=== PATIENT | female | born 1995 | race Caucasian/White ===

== ENCOUNTER 2022-11-27 14:15 | Emergency (ER) | payer MEDICAID, SELFPAY ==
--- NOTE | 2022-11-27 14:17 | ED.FEMALEGU ---
HPI - Female Genitourinary General Chief complaint: Urogenital-Female Stated complaint: Poss UTI Time Seen by Provider: 11/27/22 14:17 Source: patient Mode of arrival: ambulatory Limitations: no limitations History of Present Illness HPI Narrative: Bonnie is a 27-year-old female patient presenting to clinic today with complaints of vaginal odor and slight white discharge. She reports she has had vaginal odor for 2 weeks and some discharge today. Last sexual intercourse was on . Last menstrual period was earlier this month. Patient is pretty sure that she is in a monogamous relationship with her partner. Related Data Allergies Allergy/AdvReac Type Severity Reaction Status Date / Time No Known Allergies Allergy Verified 11/27/22 14:27 Review of Systems Review of Systems: Pertinent positives per HPI. Patient denies any fever, chills, rash, headache, visual changes, dizziness, cough, runny nose, sore throat, shortness of breath, chest pain, palpitations, nausea, vomiting, diarrhea, constipation, abdominal pain, or any urinary issues. PMFSH Comments At the time of my signature, I reviewed and agree with the nursing past medical, surgical, social, and family history. There is no relevant family history pertinent to the patient complaint. Exam Narrative: General: Well-developed, obese, in no apparent distress Head: Normocephalic, atraumatic. Cardio: Regular rate and rhythm, s1 and s2 normal, no murmur appreciated. Resp: Clear to auscultation bilaterally, no rhonchi, rales, wheezing or rubs. Abdomen: Soft, pliable, bowel sounds present in all quadrants, non-tender to palpation, no CVAT tenderness. : Pelvic exam performed with (Flakita TAY) at bedside. Verbal consent obtained from patient. Normal external female genitalia without lesions or masses, Urinary meatus: patent without discharge, Vagina: No lesions, or masses, scant white discharge in pelvic vault, Cervix: pink without mass, lesions, discharge, or tenderness. Adnexa: without palpable mass or tenderness. Course Course Emergency Course: Portions of this record may have been created with voice recognition software. Level of Care: Express Care Visit Vital Signs Vital signs: Vital Signs Temperature 36.9 C 11/27/22 14:27 Pulse Rate 68 11/27/22 14:27 Respiratory Rate 18 01/31/23 14:27 Blood Pressure 119/72 01/31/23 14:27 Pulse Oximetry 100 11/27/22 14:27 Oxygen Delivery Room Air 11/27/22 14:27 Temperature 36.9 C 11/27/22 14:27 Pulse Rate 68 11/27/22 14:27 Respiratory Rate 18 11/27/22 14:27 Blood Pressure 119/72 11/27/22 14:27 Pulse Oximetry 100 11/27/22 14:27 Oxygen Delivery Room Air 11/27/22 14:27 Vital signs reviewed MDM - Female Genitourinary MDM Narrative Medical decision making narrative: At the time of visit patient is resting comfortably on the exam table. Urinalysis and urine preg test was completed-UA was positive for trace of blood- test was negative. Vaginal exam was performed and swabs were obtained to test for chlamydia, gonorrhea, trich, and BV. I suspect patient may have BV. Prescription for metronidazole was sent to pharmacy and supportive measures were discussed with the patient she voiced understanding discharge instructions agrees to treatment plan. Differential Diagnosis Differential diagnosis: Likely urinary tract infection and cystitis Lab Data Labs: UCG Bedside Result Negative Reference Range: Negative Urine Glucose Negative Reference Range: Negative Urine Bilirubin Negative Reference Range: Negative Urine Ketone Negative Reference Range: Negative Urine Specific [place] 1.025
[2022-11-27 14:27] VITALS: BP 119/72; PULSE 68; RESP 18; TEMP 36.9; O2SAT 100
== END 2022-11-27 14:54 | disposition home or self-care (01) ==
PROVIDERS: Emergency Provider Nurse Practitioner Family
DX: N76.0 Acute vaginitis (principal)
CPT/HCPCS: 81003; 81025; 87070; 87491; 87591; 87661; 99214; G0463